=== PATIENT | female | born 1980 | race Caucasian/White ===

== ENCOUNTER → 2016-12-19 08:08 | Outpatient (CLI) | payer BC ==
[2015-02-22 14:02] VITALS: BMI 29.8
[~2016-12-19 08:08] MED LIST: BENADRYL25 M1; CALCICARB650 MG PO; CLARITIN 10 MG10 MG PO; DESERYL100 MG; FISH OIL 1,0001 CA1 PO; HYDROCODONE-APA1 TAB PO; IBUPROFEN600 MG PO; MULTI-DAY VITAM1 TAB PO; NORCO 10/325 TA1 TA1 PO; PERCOCET 5-3251 TAB PO; TRI-SPRINTEC; TUMS500 MG PO; VITAMIN D2000 UNIT PO
== END | disposition home or self-care (01) ==
LOC: D.RAD 08:08
DX: K21.9 Gastro-esophageal reflux disease without esophagitis (principal); R10.13 Epigastric pain

== ENCOUNTER → 2017-01-04 16:24 | Outpatient (CLI) | payer BC ==
[2015-02-22 14:02] VITALS: BMI 29.8
== END | disposition home or self-care (01) ==
LOC: D.MAMMO 09:30
DX: R92.8 Other abnormal and inconclusive findings on diagnostic imaging of breast (principal)

== ENCOUNTER 2018-01-26 01:17 | Emergency (ER) | payer BC ==
[2015-02-22 14:02] VITALS: BMI 29.8
[2018-01-26 01:58] LABS: BASOPHILS 0.3 % (0-2); EOSINOPHILS 4.6 % (0-7); HEMATOCRIT 33.6 % (36.0-48.0); HEMOGLOBIN 11.2 g/dL (12-16); IMMATURE GRANULOCYTES 0.3 % (0-5); LYMPHOCYTES 39.4 % (15-50); MCH 29.4 pg (26.0-34.0); MCHC 33.3 g/dL (31.0-37.0); MCV 88.2 fL (80.0-100.0); MEAN PLATELET VOLUME 9.4 fL (7.4-10.4); MONOCYTES 4.6 % (2-11); NEUTROPHILS 50.8 % (40-80); PLATELET COUNT 292 10x3/uL (130-400); RBC 3.81 10x6/uL (4.00-5.40); RDW 12.6 % (11.5-14.5); WBC 7.2 10x3/uL (4.8-10.8)
[2018-01-26 02:12] LABS: ALBUMIN 3.3 g/dL (3.4-5.0); ALKALINE PHOSPHATASE 72 U/L (46-116); ALT (SGPT) 68 U/L (10-68); CALC OSMOLALITY 279 mosm/kg (275-300); CALCIUM 8.4 mg/dL (8.5-10.1); CARBON DIOXIDE 20.2 mmol/L (21.0-32.0); CHLORIDE - SERUM 104 mmol/L (98-107); CKMB 3.3 U/L (0.0-3.6); CREATINE KINASE 737 UL (21-215); CREATININE - SERUM 0.6 mg/dL (0.6-1.3); GLUCOSE 115 mg/dL (74-106); PROTEIN - SERUM 6.8 g/dL (6.4-8.2); SODIUM 139 mmol/L (136-145); TROPONIN-I < 0.017 ng/mL (0.000-0.060); UREA NITROGEN 14 mg/dL (7-18); eGFR NON AFRICAN AMERICAN > 90 mL/min (90-120)
[2018-01-26 02:14] LABS: POTASSIUM - SERUM 2.8 mmol/L (3.5-5.1)
== END 2018-01-26 04:36 | disposition home or self-care (01) ==
LOC: D.ER 01:17
PROVIDERS: Emergency Medicine
DX: R10.9 Unspecified abdominal pain (principal); E87.6 Hypokalemia; D64.9 Anemia, unspecified

== ENCOUNTER → 2018-01-31 08:53 | Outpatient (CLI) | payer BC ==
[2015-02-22 14:02] VITALS: BMI 29.8
== END | disposition home or self-care (01) ==
LOC: D.LAB 08:53
DX: E87.6 Hypokalemia (principal)

== ENCOUNTER → 2018-02-05 16:26 | Outpatient (CLI) | payer BC ==
[2015-02-22 14:02] VITALS: BMI 29.8
== END | disposition home or self-care (01) ==
LOC: D.MAMMO 09:00
DX: Z12.31 Encounter for screening mammogram for malignant neoplasm of breast (principal)

== ENCOUNTER → 2018-12-19 07:57 | Outpatient (CLI) | payer BC ==
[2015-02-22 14:02] VITALS: BMI 29.8
== END | disposition home or self-care (01) ==
LOC: D.LAB 07:57
DX: R74.8 Abnormal levels of other serum enzymes (principal); M79.10 Myalgia, unspecified site

== ENCOUNTER → 2018-12-29 08:10 | Outpatient (CLI) | payer BC ==
[2015-02-22 14:02] VITALS: BMI 29.8
[2018-12-29 09:10] LABS: CREATINE KINASE 635 UL (21-215)
[2018-12-29 09:11] LABS: CKMB 3.4 U/L (0.0-3.6)
== END | disposition home or self-care (01) ==
LOC: D.LAB 08:10
PROVIDERS: Internal Medicine Gastroenterology
DX: R74.8 Abnormal levels of other serum enzymes (principal)

== ENCOUNTER → 2019-01-09 07:33 | Outpatient (CLI) | payer BC ==
[2015-02-22 14:02] VITALS: BMI 29.8
== END | disposition home or self-care (01) ==
LOC: D.MRI 01-08 13:00
PROVIDERS: ATTEND Internal Medicine Rheumatology
DX: M33.22 Polymyositis with myopathy (principal)

== ENCOUNTER → 2019-02-13 08:03 | Outpatient (CLI) | payer BC ==
[2015-02-22 14:02] VITALS: BMI 29.8
[2019-02-13 09:24] LABS: C-REACTIVE PROTEIN 0.7 mg/dL (0.0-0.9); CREATINE KINASE 492 UL (21-215); T4 THYROXIN - FREE 0.92 ng/dL (0.76-1.46); THYROID STIMULATING HORMONE 2.06 uIU/mL (0.36-3.74)
[2019-02-13 09:41] LABS: CKMB 3.1 U/L (0.0-3.6)
== END | disposition home or self-care (01) ==
LOC: D.MAMMO 08:03
PROVIDERS: ATTEND Internal Medicine Gastroenterology
DX: R74.8 Abnormal levels of other serum enzymes (principal); R94.6 Abnormal results of thyroid function studies

== ENCOUNTER 2019-07-03 07:11 | Day surgery (SDC) | payer BC ==
[~2019-07-03] VITALS: Ht 170.2 cm; Wt 90.7 kg
[~2019-07-03 07:11] MED LIST changes: +ALBUTEROL SULF8.5 GM INH; +ATARAX 25 MG TA25 MG PO; +BENADRYL50 MG PO; +BUSPAR10 MG PO; +CARBINOXAMIN PO; +METOPROLOL TART50 MG PO; +THEREMS-M1 TAB PO; +TRI-SPRINTEC TAB PO
[2019-07-03 07:54] LABS: HEMATOCRIT 36.8 % (36.0-48.0); HEMOGLOBIN 12.6 g/dL (12-16); MCH 29.5 pg (26.0-34.0); MCHC 34.2 g/dL (31.0-37.0); MCV 86.2 fL (80.0-100.0); MEAN PLATELET VOLUME 9.8 fL (7.4-10.4); RBC 4.27 10x6/uL (4.00-5.40); RDW 13.8 % (11.5-14.5); WBC 5.7 10x3/uL (4.8-10.8)
[2019-07-03] MEDS ORDERED: RANITIDINE HCL150 M1 (08:35)
[2019-07-03 08:36] LABS: HCG URINE NEGATIVE (NEGATIVE)
[2019-07-03 09:00] VITALS: BP 137/85; Ht 170.2 cm; Wt 90.7 kg
--- NOTE | 2019-07-03 13:17 | NUR ---
1250-DISCHARGE CRITERIA MET. REMOVED IV FROM LEFT HAND WITH CATH INTACT,DISPOSED INTO SHARPS CONTAINER,COVERED WITH BANDAID. REVIEWED DISCHARGE INSTRUCTIONS WITH PT AND SPOUSE. VERBALIZED UNDERSTANDING,ESCORTED OUT VIA W/C WITH SPOUSE TO DRIVE HOME.DISCHARGE INSTRUCTIONS IN HAND.
--- NOTE | 2019-07-27 11:31 | OP ---
PATIENT NAME: TIMOTHY WHITT MEDICAL RECORD: [id number] :82 LOCATION:[facility] ADMISSION DATE: SURGEON: LEXI GAMBLE MD DATE OF OPERATION: 07/03/2019 PREOPERATIVE DIAGNOSIS: Chronic tonsillitis. POSTOPERATIVE DIAGNOSIS: Chronic tonsillitis. PROCEDURE: Tonsillectomy. SURGEON: Lexi Gamble MD ANESTHESIA: General orotracheal. BLOOD LOSS: 10 cc. SPECIMENS: Right and left tonsil. COMPLICATIONS: None. DISPOSITION: Recovery stable. PROCEDURE NOTE: He was brought to the operating room and placed in the supine position, sedated and intubated by anesthesia. The table was turned 90 degrees. Head drapes applied and she was positioned for tonsillectomy. Using a headlight, a Harley-Trav mouth gag was carefully inserted and elevated on a towel on her chest. The palate was examined and palpated as normal. A red rubber catheter was placed to the right side of the nose and pharynx and grasped with tonsil clamp to retract the soft palate. Using a mirror, the nasopharynx was examined. The choanae and eustachian orifices were normal bilaterally. There was no significant adenoid tissue. The nasopharynx was normal. A red rubber catheter was let down and removed. The right tonsil was grasped with a straight Allis clamp. Spatula tip cautery on a setting of 10 was used to dissect out the tonsil along its capsule, preserving the anterior and posterior tonsillar pillars extremely deep pocketed tonsil with massive amounts of tonsilliths. The left tonsil was removed in the same fashion with the same findings. Then, both sides of the nose were irrigated with saline. The pharynx was suctioned. Tonsillar fossae were agitated. Suction cautery on a setting of 18 was used to control minimal oozing from both tonsils with the field completely clean and dry, the Harley-Trav mouth gag was let down and removed. She was awakened, extubated, and transported to recovery in good condition. No complications. TRANSINT:[id number] Voice Confirmation ID: [id number] DOCUMENT ID: [id number] OPERATIVE REPORT [id number] BROOKE WHITTIRVINJOAN Jose LEXI GAMBLE MD at 1135 CC: [id number] DICTATION DATE: 07/03/19 1111 [employer] MAINTAINER: 07/03/19 1134 [facility] 07/03/19 [id number] [place] [address]
--- NOTE | 2019-07-27 11:31 | HP ---
PATIENT: TIMOTHY WHITT MEDICAL RECORD: [id number] ACCOUNT: [id number] LOCATION:[facility] : 82 ADMISSION DATE: 07/03/19 PCP: LYN VAZQUEZ MD HISTORY AND PHYSICAL EXAMINATION HISTORY OF PRESENT ILLNESS: Timothy Whitt is 38-year-old years old. She has been having chronic problems with caseous tonsillitis and tonsil infections. She is being admitted for tonsillectomy. PAST MEDICAL HISTORY: Includes hypertension and reflux. PAST SURGICAL HISTORY: Includes cholecystectomy, hernia repair, EGD. CURRENT MEDICATIONS: Include calcium, BuSpar, Pepcid, Palgic, Zoloft, Benadryl, TriNessa. ALLERGIES: No known drug allergies. PHYSICAL EXAMINATION: GENERAL: Healthy-appearing. FACE: Normal, symmetric, no lesions. EYES: Sclerae and conjunctivae are normal. EARS: Canals and TMs are normal. NOSE: No mass, polyps or drainage. ORAL CAVITY AND OROPHARYNX: Tonsils with large pockets and tonsilliths bilaterally. NECK: No masses, no adenopathy. CHEST: Clear. CARDIOVASCULAR: Regular rate and rhythm, no murmur. EXTREMITIES: Normal. IMPRESSION: Chronic caseous tonsillitis. PLAN: Tonsillectomy. TRANSINT:[id number] Voice Confirmation ID: [id number] DOCUMENT ID: [id number] LEXI MATHIS MD at 1131 CC: [id number] DICTATION DATE: 07/01/19 1058 RELOCATION DIRECTOR: 07/01/19 1112 [facility] 07/03/[address] [address]
== END 2019-07-03 12:50 | disposition home or self-care (01) ==
LOC: D.OPS 07:11 → D.PAN 09:15 → D.OPS 09:15
PROVIDERS: Anesthesiology; ATTEND Otolaryngology
DX: J35.01 Chronic tonsillitis (principal); Z01.812 Encounter for preprocedural laboratory examination